=== PATIENT | female | born 1950 | race Caucasian/White ===

== ENCOUNTER → 2018-04-30 | Outpatient (CLI) | payer MEDICARE | END | disposition home or self-care (01) | LOC: CFH 13:19 | PROVIDERS: ATTEND Nurse Practitioner | DX: Z12.31 Encounter for screening mammogram for malignant neoplasm of breast (principal); M81.0 Age-related osteoporosis without current pathological fracture; M89.9 Disorder of bone, unspecified; N95.8 Other specified menopausal and perimenopausal disorders; M85.88 Other specified disorders of bone density and structure, other site | CPT/HCPCS: 77063; 77080; 77067 ==

== ENCOUNTER → 2018-05-21 | Outpatient (CLI) | payer MEDICARE | END | disposition home or self-care (01) | LOC: CFH 14:51 | PROVIDERS: ATTEND Nurse Practitioner | DX: N60.02 Solitary cyst of left breast (principal) | CPT/HCPCS: 77065 ==

== ENCOUNTER → 2018-06-18 | Outpatient (CLI) | payer MEDICARE ==
[~2018-06-18] MED LIST: LIDOCAINE 1%, 20ML ONE; LIDOCAINE 1%-EPI 1:100K, 20ML ONE; SODIUM BICARBONATE 4.0%, 5ML ONE
== END | disposition home or self-care (01) ==
LOC: CFH 08:43
PROVIDERS: ATTEND Nurse Practitioner
DX: N63.20 Unspecified lump in the left breast, unspecified quadrant (principal)
CPT/HCPCS: 19083; 77065; 88305; 88341; 88342; J3490

== ENCOUNTER → 2018-07-02 | Outpatient (CLI) | payer MEDICARE ==
[~2018-07-02] MED LIST changes: -LIDOCAINE 1%, 20ML ONE; -LIDOCAINE 1%-EPI 1:100K, 20ML ONE; +OMNIPAQUE 350 MG/ML, 100ML BOTTLE ONE; -SODIUM BICARBONATE 4.0%, 5ML ONE
== END | disposition home or self-care (01) ==
LOC: CFH 07:41
PROVIDERS: ATTEND Surgery
DX: C85.90 Non-Hodgkin lymphoma, unspecified, unspecified site (principal); R91.8 Other nonspecific abnormal finding of lung field; K43.9 Ventral hernia without obstruction or gangrene; M62.58 Muscle wasting and atrophy, not elsewhere classified, other site; M47.899 Other spondylosis, site unspecified; N28.1 Cyst of kidney, acquired; M19.90 Unspecified osteoarthritis, unspecified site; K21.9 Gastro-esophageal reflux disease without esophagitis; I10 Essential (primary) hypertension; Z98.890 Other specified postprocedural states
CPT/HCPCS: 71260; 74177; 78306; A9503; Q9967

== ENCOUNTER 2018-07-29 06:49 | Outpatient (CLI) | payer MEDICARE ==
[2018-07-29] MEDS ORDERED: LIDOCAINE 1%, 20ML ONE (07:00)
[2018-07-29] MEDS ORDERED: SODIUM BICARBONATE 4.2%, 5ML ONE (07:00)
[2018-07-29] MEDS ORDERED: LIDOCAINE 1%-EPI 1:100K, 20ML ONE (07:00)
[2018-07-30] MEDS ORDERED: MULT-658 PO (11:46)
[2018-07-30] MEDS ORDERED: AMLO-150 PO (11:46)
[2018-07-30] MEDS ORDERED: OMEP40CA6 PO (11:46)
[2018-07-30] MEDS ORDERED: CALC-126 PO (11:46)
== END 2018-07-29 23:59 | disposition home or self-care (01) ==
LOC: CFH 06:49
PROVIDERS: ATTEND Surgery
DX: N63.20 Unspecified lump in the left breast, unspecified quadrant (principal)
CPT/HCPCS: 19285; 77065; J3490

== ENCOUNTER 2018-08-02 06:23 | Day surgery (SDC) | payer MEDICARE ==
[~2018-08-02] VITALS: Ht 157.5 cm; Wt 76.0 kg
[~2018-08-02 06:23] MED LIST changes: +AMLO-150 PO; +CALC-126 PO; +MULT-658 PO; +OMEP40CA6 PO; -OMNIPAQUE 350 MG/ML, 100ML BOTTLE ONE
[2018-08-02] MEDS ORDERED: LACTATED RINGERS 1,000 ML IV SCH (07:01)
[2018-08-02] MEDS ORDERED: MIDAZOLAM 1 MG/ML, 2ML ONE (09:27)
[2018-08-02] MEDS ORDERED: FENTANYL PF 100 MCG/2ML ONE (09:27)
[2018-08-02] MEDS ORDERED: PROPOFOL 10 MG/ML, 20ML ONE (09:28)
[2018-08-02] MEDS ORDERED: CEFAZOLIN 1,000 MG ONE (09:29)
[2018-08-02] MEDS ORDERED: BUPIVACAINE/EPI 0.5% 1:200K ONE (09:29)
[2018-08-02] MEDS ORDERED: ONDANSETRON 2MG/ML, 2ML ONE (09:29)
[2018-08-02] MEDS ORDERED: DEXAMETHASONE 4 MG/ML, 1ML ONE (09:29)
[2018-08-02] MEDS ORDERED: PROMETHAZINE 12.5 MG SUPP PR PRN (10:00)
[2018-08-02] MEDS ORDERED: hydrALAzine 20 MG/ML, 1ML IV PRN (10:00)
[2018-08-02] MEDS ORDERED: ONDANSETRON ODT 8 MG PO PRN (10:00)
[2018-08-02] MEDS ORDERED: MEPERIDINE/PF 25MG/0.5ML IVPush PRN (10:00)
[2018-08-02] MEDS ORDERED: MORPHINE SULFATE 4 MG/ML, 1ML IVPush PRN (10:00)
[2018-08-02] MEDS ORDERED: MIDAZOLAM 1 MG/ML, 2ML IV PRN (10:00)
[2018-08-02] MEDS ORDERED: HALOPERIDOL 5 MG/ML IV PRN (10:00)
[2018-08-02] MEDS ORDERED: OXYcodone 5 MG/5 ML ORAL.SOL UDC PO PRN (10:00)
[2018-08-02] MEDS ORDERED: LABETALOL 5MG/ML, 20ML IV PRN (10:00)
[2018-08-02] MEDS ORDERED: PROMETHAZINE 25 MG/ML, 1ML IV PRN (10:00)
[2018-08-02] MEDS ORDERED: EPHEDRINE 50 MG/ML, 1ML IVPush PRN (10:00)
[2018-08-02] MEDS ORDERED: HYDROmorphone 2 MG/ML, 1ML IVPush PRN (10:00)
[2018-08-02] MEDS ORDERED: ALBUTEROL SULFATE 2.5 MG/3 ML NPPB PRN (10:00)
[2018-08-02] MEDS ORDERED: DIAZEPAM 5 MG/ML, 2ML IVPush PRN (10:00)
[2018-08-02] MEDS ORDERED: ONDANSETRON 2MG/ML, 2ML IV PRN (10:00)
[2018-08-02] MEDS ORDERED: FENTANYL PF 100 MCG/2ML IV PRN (10:00)
[2018-08-02] MEDS ORDERED: ACETAMINOPHEN 325 MG TABLET PO PRN (10:00)
[2018-08-02] MEDS ORDERED: ACETAMINOPHEN 650 MG/20.3 ML UDC ONE (10:30)
== END 2018-08-02 12:30 | disposition home or self-care (01) ==
LOC: OUT 06:23
PROVIDERS: ATTEND Surgery
DX: C85.14 Unspecified B-cell lymphoma, lymph nodes of axilla and upper limb (principal); I10 Essential (primary) hypertension; K21.9 Gastro-esophageal reflux disease without esophagitis; M19.90 Unspecified osteoarthritis, unspecified site; Z79.899 Other long term (current) drug therapy; Z98.890 Other specified postprocedural states
CPT/HCPCS: 19301; 76098; 88305; 88307; 88341; 88342; 93005; J0690; J1100; J2250; J2405; J2704; J3010; J7120

== ENCOUNTER 2019-05-06 09:39 | Outpatient (CLI) | payer MEDICARE ==
[~2019-05-06 09:39] MED LIST changes: +OMEP40CA42 PO; -OMEP40CA6 PO
== END 2019-05-06 23:59 | disposition home or self-care (01) ==
LOC: CFH 09:39
PROVIDERS: ATTEND Internal Medicine Hematology & Oncology
DX: Z12.31 Encounter for screening mammogram for malignant neoplasm of breast (principal); C85.10 Unspecified B-cell lymphoma, unspecified site
CPT/HCPCS: 77063; 77067

== ENCOUNTER 2020-05-11 10:37 | Outpatient (CLI) | payer MEDICARE | END 2020-05-11 23:59 | disposition home or self-care (01) | LOC: CFH 10:37 | DX: Z12.31 Encounter for screening mammogram for malignant neoplasm of breast (principal); Z13.820 Encounter for screening for osteoporosis; M85.88 Other specified disorders of bone density and structure, other site; N95.9 Unspecified menopausal and perimenopausal disorder | CPT/HCPCS: 77063; 77067; 77080 ==